=== PATIENT | male | born 1980 | race Caucasian/White ===

== ENCOUNTER 2016-12-07 13:09 | Emergency (ER) | payer OTHER ==
[~2016-12-07 13:09] MED LIST: ASPIR 8181 MG; ASPIR 8181 MG PO; LISINOPRIL10 MG PO; NEURONTIN800 MG PO; PLAVIX75 MG PO; TOPROL XL 25 MG25 MG PO
[2016-12-07 14:14] LABS: BUN/CREATININE RATIO 13 (0-10)
[2016-12-07 14:47] LABS: HEMOGLOBIN 15.9 gm/dl (14.0-17.5); RED BLOOD COUNT 4.51 M/UL (4.20-5.50); WHITE BLOOD COUNT 4.4 K/UL (4.5-11.0)
== END 2016-12-07 18:10 | disposition home or self-care (01) ==
LOC: ER1 13:09
PROVIDERS: Emergency Medicine
DX: K52.9 Noninfective gastroenteritis and colitis, unspecified (principal); K62.5 Hemorrhage of anus and rectum; R94.5 Abnormal results of liver function studies; R73.9 Hyperglycemia, unspecified; I25.2 Old myocardial infarction; Z95.1 Presence of aortocoronary bypass graft; Z95.5 Presence of coronary angioplasty implant and graft; Z79.02 Long term (current) use of antithrombotics/antiplatelets; Z79.82 Long term (current) use of aspirin; Z79.899 Other long term (current) drug therapy
CPT/HCPCS: 36415; 80053; 81001; 82150; 82270; 83690; 85025; 96374; 96375; 99284; C9113; J2270; J2405; J7050; Q9962